=== PATIENT | female | born 1965 | race Caucasian/White ===

== ENCOUNTER 2020-04-06 15:03 | Emergency (ER) | payer MEDICARE, SELFPAY ==
--- NOTE | ~2020-04-06 | CT_ITS ---
EXAMINATION: CT lumbar spine wo con DATE: 04/06/2020 17:34 INDICATION: Severe back pain TECHNIQUE: Computed tomography (CT) of the lumbar spine was performed without intravenous contrast. A utomated exposure control and iterative reconstruction technique were employed. The dose-length produ ct was 1006.40 mGy-cm. COMPARISON: None FINDINGS: 5 mm retrolisthesis L5 on S1. Vertebral body heights are normal. No fracture. Mild disc hei ght loss at L2-L3, L3-L4 and L5-S1 and mild to moderate disc height loss at L4-L5. Paravertebral soft tissues are unremarkable. 3 nonobstructing left renal stones the largest measuring 8 mm. The followi ng disc levels are specifically discussed: T11-T12: Disc is mildly bulging. There is mild bilateral facet joint osteoarthritis. There is no neur al foraminal stenosis. There is mild central canal stenosis. T12-L1: Disc is mildly bulging. There is mild bilateral facet joint osteoarthritis. There is no neura l foraminal stenosis. There is mild central canal stenosis. L1-L2: Disc is mildly bulging. There is mild bilateral facet joint osteoarthritis. There is no neural foraminal stenosis. There is mild central canal stenosis. L2-L3: Disc is bulging. There is mild bilateral facet joint osteoarthritis. There is no neural forami nal stenosis. There is mild to moderate central canal stenosis. L3-L4: Disc is bulging. There is mild bilateral facet joint osteoarthritis. There is no neural forami nal stenosis. There is mild central canal stenosis. L4-L5: Disc is bulging. There is mild bilateral facet joint osteoarthritis. There is mild right neura l foraminal stenosis. There is moderate central canal stenosis. L5-S1: Disc is bulging. There is mild bilateral facet joint osteoarthritis. There is mild bilateral n eural foraminal stenosis. There is minimal central canal stenosis. IMPRESSION: 1. Mild lumbar spondylosis. 2. Nonobstructing left nephrolithiasis. Reviewed, dictated and finalized at location A.
--- NOTE | ~2020-04-06 | XR_ITS ---
EXAMINATION: XR hip LT 2V w AP pelvis DATE: 04/06/2020 17:58 INDICATION: Left hip pain radiating down the left leg. TECHNIQUE: Anteroposterior view of the pelvis and anteroposterior and frog-leg lateral views of the l eft hip were obtained. COMPARISON: 09/30/2015 FINDINGS: Alignment is normal. No fracture or suspected avascular necrosis. Mild right and mild to moderate lef t hip osteoarthritis. Small bone island at the left femoral head. Soft tissues are unremarkable. IMPRESSION: 1. Mild right and mild to moderate left hip osteoarthritis. Reviewed, dictated and finalized at location A.
[2020-04-06 15:27] VITALS: BP 140/92; PULSE 107; RESP 16; TEMP 36.1; O2SAT 100
--- NOTE | 2020-04-06 16:42 | ED.BACK ---
HPI - Back Pain/Injury General Chief Complaint: Back Pain/Injury Stated Complaint: SEVERE PAIN IN MY BUTT AND HIP Time Seen by Provider: 04/06/20 16:08 Source: patient Mode of arrival: ambulatory Limitations: no limitations History of Present Illness HPI Narrative: This patient is a 54 year old female who presents for evaluation of sharp pain to left buttock and left lower back. She reports she has had severe pain to left buttock radiating to left hip and left thigh. This has been occurring for 1 week. She reports her pain has progressively worsened. She reports pain with walking. She also reports tingling and numbness in her left foot. She has been taking over the counter medication. She reports she also has epilepsy and she is having increased stress at home. She reports she had a seizure today due to anxiety. She reports she is taking Keppra 1000 mg twice a day and she report she has not missed any medication. Related Data Allergies Allergy/AdvReac Type Severity Reaction Status Date / Time linezolid Allergy Unknown Verified 02/13/17 00:43 topiramate Allergy Unknown Verified 02/13/17 00:43 CIPROFLOXACIN HCL Allergy Unknown Uncoded 02/13/17 00:43 Review of Systems Review of Systems: All systems reviewed & are unremarkable except as noted in HPI and below Constitutional: Constitutional: Denies chills and Denies fever(s) Gastrointestinal: Gastrointestinal: Denies abdominal pain, Denies nausea and Denies vomiting Genitourinary: Genitourinary: Denies nocturia and Reports urinary incontinence Musculoskeletal: Musculoskeletal: Reports back pain Neurologic: Denies vertigo, Denies focal weakness and Reports numbness [facility] Past Medical History Medical History (Updated 04/06/20 @ 18:39 by Laurie Degroot MD) COPD (chronic obstructive pulmonary disease) Peripheral neuropathy Seizure Social History Social History (Updated 04/06/20 @ 16:49 by Laurie Degroot MD) Smoking packs per day: 0.5 Smoking cigarettes per day: 10.0 Smoking status: Current every day smoker Exam Const: General: no acute distress and alert Orientation/consciousness: patient oriented x3 HENMT: Head: normal to inspection Eyes: Pupils: Equal, round and reactive pupils present EOM: EOMs intact bilaterally Chest: Chest palpation & inspection: normal inspection of the chest Resp: Effort & Inspection: normal respiratory effort and no retractions Auscultation: clear to auscultation bilaterally Cardio: Rate: regular rate Rhythm: regular rhythm Heart sounds: no murmurs Peripheral pulses: radial pulses present, posterior tibial pulses present bilateral 2+ and dorsalis pedis present bilateral GI: GI Palp: Yes Soft to palpation, No Tenderness to palpation present (GI) and No Guarding due to palpation present (GI) Auscultation: normal bowel sounds Back/Spine/Pelvis: Back: no CVA tenderness Pelvis: buttock tenderness Skin: General skin exam: normal color Rashes: no rashes Neuro: General: patient oriented x3, moves all extremities, no focal motor deficits and CN's II-XI intact bilaterally Other: walk with limp due to pain Extrem: General: normal to inspection and no pedal edema Psych: Mental Status: mental status grossly normal Affect: normal affect Course Reevaluation(s) Reevaluation #1: I Discussed with patient labs and imaging results. She will follow up with PCP . She has not saddle anesthesia or focal weakness. Date: 04/06/20 Time: 18:38 Vital Signs Vital signs: Vital Signs Temperature 97 F L 04/06/20 15:27 Pulse Rate 107 H 04/06/20 15:27 Respiratory Rate 16 04/06/20 15:27 Blood Pressure 140/92 H 04/06/20 15:27 Pulse Oximetry 100 04/06/20 15:27 Temperature 97 F L 04/06/20 15:27 Pulse Rate 94 04/06/20 18:48 Respiratory Rate 12 04/06/20 18:48 Blood Pressure 104/58 L 04/06/20 18:48 Pulse Oximetry 95 04/06/20 18:48 MDM - Back Pain/Injury Lab Data Attestation: I review
[2020-04-06] MEDS: KETOROLAC 30 MG/ML VIAL (*BKC) IV PUSH (17:04)
[2020-04-06] MEDS: methylPREDNISolone SOD SUCC 125 MG VIAL IV PUSH (17:05)
[2020-04-06 17:13] LABS: Basophils Absolute Auto 0.1 K/mm3 (0.0-0.1); Basophils Percent Auto 0.6 % (0.2-1.2); Eosinophils Absolute Auto 0.2 K/mm3 (0-0.3); Eosinophils Percent Auto 1.6 % (0-4.4); Hematocrit 43.9 % (37.0-47.0); Immature Granulocyte Absolute 0.02 K/mm3 (0.00-0.031); Immature Granulocyte Percent A 0.2 % (0-0.5); Lymphocytes Absolute Auto 4.75 K/mm3 (0.9-3.2); Lymphocytes Percent Auto 48.4 % (18.3-44.2); Mean Corpuscular HGB Conc 34.2 g/dl (32-36); Mean Corpuscular Hemoglobin 29.2 pg (26-34); Mean Corpuscular Volume 85.4 fl (80-100); Mean Platelet Volume 9.7 fl (7.4-10.4); Monocytes Absolute Auto 0.6 K/mm3 (0.1-0.6); Neutrophils Absolute Auto 4.2 K/mm3 (1.3-6.7); Neutrophils Percent Auto 43.2 % (45.5-73.1); Platelet Count Result 254 k/mm3 (150-375); Red Blood Count 5.14 M/mm3 (4.2-5.4); Red Cell Distribution Width 11.9 % (11.5-14.5); White Blood Count 9.8 K/mm3 (4.5-10.0)
[2020-04-06 17:15] LABS: Add Urine Microscopic? NO; Appearance Urine Clear (Clear); Bilirubin Urine Negative (Negative); Blood Urine Negative (Negative); Color Urine Yellow (Yellow); Glucose Urine UA Negative (Negative); Ketones Urine Negative (Negative); Leukocyte Esterase Ur Negative LEU/UL (Negative); Nitrate Urine Negative (Negative); Protein Urine Negative (Negative); Specific Grav Ur 1.013 (1.001-1.035); Urobilinogen Urine Negative mg/dL (<2.0)
[2020-04-06 17:24] LABS: Anion Gap 7 mmol/L (8-16); Blood Urea Nitrogen 12 mg/dL (7-17); Calcium 9.5 mg/dL (8.4-10.2); Carbon Dioxide 27 mmol/L (22-30); Chloride 107 mmol/L (98-107); Estimated CRCL calculation 115 ml/min; Estimated Glomerular Filt Rate > 60; Glucose 92 mg/dL (65-105); Potassium 4.2 mmol/L (3.4-5.0); Sodium 141 mmol/L (137-145)
[2020-04-06 17:31] LABS: Amphetamine Screen Urine Negative (Negative); Barbiturate Screen Urine Negative (Negative); Benzodiazepines Screen Urine Negative (Negative); Cannabinoid Screen Urine Positive (Negative); Cocaine Screen Urine Negative (Negative); Methadone Screen Urine Negative (Negative); Opiate Screen Urine Negative (Negative); Phencyclidine Screen Urine Negative (Negative)
[2020-04-06 18:48] VITALS: BP 104/58; PULSE 94; RESP 12; O2SAT 95
== END 2020-04-06 18:53 | disposition home or self-care (01) ==
PROVIDERS: Emergency Provider General Practice; PCP Family Medicine
DX: M54.42 Lumbago with sciatica, left side (principal); M54.16 Radiculopathy, lumbar region; J44.9 Chronic obstructive pulmonary disease, unspecified; G62.9 Polyneuropathy, unspecified; G40.909 Epilepsy, unspecified, not intractable, without status epilepticus; F17.210 Nicotine dependence, cigarettes, uncomplicated; M47.816 Spondylosis without myelopathy or radiculopathy, lumbar region; M16.0 Bilateral primary osteoarthritis of hip
CPT/HCPCS: 36415; 72131; 73502; 80048; 80307; 81003; 85025; 96374; 96375; 99284; J1885; J2930